=== PATIENT | female | born 2000 | race Caucasian/White ===

== ENCOUNTER 2022-11-02 16:04 | Emergency (ER) | payer BC, SELFPAY ==
[2022-11-02 17:12] VITALS: BP 120/70; PULSE 89; RESP 20; TEMP 36.7; O2SAT 99; BMI 26.6
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
[2022-11-02] MEDS: metroNIDAZOLE 500 MG TABLET 2000 MG PO (18:22)
[2022-11-02] MEDS: Ondansetron ODT 4 MG TAB.RAPDIS TRANSLINGU (18:24)
[2022-11-02 18:30] LABS: Appearance Urine Clear; Color Urine Yellow; Glucose Urine UA Negative (Negative); Leukocyte Esterase Urine Trace (Negative); Nitrite Urine Negative (Negative); UMIC TRIGGER UACC YES; Urine Blood Negative (Negative); Urine Ketones Trace mg/dL (Negative); Urine Protein Negative (Neg-Trace)
[2022-11-02 18:32] LABS: UPreg QC Valid YES; Urine Pregnancy NEGATIVE (NEGATIVE)
[2022-11-02 18:38] LABS: Bacteria Urine None Seen (None Seen); Hyaline Casts Urine 0-2 /LPF (0-2); RBC Urine 0-2 /HPF (0-2); Squamous Epithelial Cell Urine 0-2 /HPF (0-2); WBC Urine 0-5 /HPF (0-5)
[2022-11-02] MEDS: Post Exposure Medication Kit 1 KIT PO (18:46)
--- NOTE | 2022-11-02 19:04 | PC.NURSE ---
Patient scared of needles want to wait till tomorrow for results of testing. state she will check for results and decide if she is coming back. Patient anxious wants to go home. Patient states I should know why she wants to go home. Patient denies any pain. Asked if she wanted some ativan to help her deal with the anxiety of needles. She refused.
[2022-11-03 02:16] LABS: CT PCR NOT DETECTED (Not Detect.); NG PCR NOT DETECTED (Not Detect.)
[2022-11-03 08:54] LABS: HIV AB/AG Nonreactive (Nonreactive); HIV Num 1 0.08 S/CO (0.00-0.99)
[2022-11-03 09:08] LABS: Syphilis Screen Nonreactive (Nonreactive)
== END 2022-11-02 19:12 | disposition home or self-care (01) ==
PROVIDERS: Nurse Practitioner Family; Physician Assistant; Emergency Provider Student in an Organized Health Care Education/Training Program; PCP Nurse Practitioner
DX: T76.21XA Adult sexual abuse, suspected, initial encounter (principal); Z79.899 Other long term (current) drug therapy; Z20.828 Contact with and (suspected) exposure to other viral communicable diseases; Z20.2 Contact with and (suspected) exposure to infections with a predominantly sexual mode of transmission
CPT/HCPCS: 0353U; 36415; 81001; 81025; 86780; 87389; 99282; 99283